=== PATIENT | female | born 1995 ===

== ENCOUNTER 2018-03-17 19:13 | Emergency (ER) | payer MEDICAID, OTHER ==
[2018-03-17 19:28] VITALS: TEMP 98.2; O2SAT 99
--- NOTE | 2018-03-17 19:57 | ED PDOC ---
HPI: Abdomen Time Seen by Provider: 03/17/18 19:36 Chief Complaint (Nursing): Abdominal Pain Chief Complaint (Provider): Abdominal Pain History Per: Patient History/Exam Limitations: no limitations Onset/Duration Of Symptoms: Days (x3) Current Symptoms Are (Timing): Still Present Location Of Pain/Discomfort: LUQ, LLQ Additional Complaint(s): 22 y/o female with a PMHx of a benign pituitary tumor presents to the ED for evaluation of left sided abdominal pain, onset three hours ago. Patient states she was at work when she developed acute left sided abdominal pain. Patient describes pain as sharp, stating pain is a 9/10. Patient reports she is due for her menstrual period on 03/25/2018. Otherwise, patient denies nausea, vomiting and diarrhea. PMD: Marlene Herzog Past Medical History Reviewed: Historical Data, Nursing Documentation, Vital Signs Vital Signs: Last Vital Signs Temp 98.2 F 03/17/18 19:25 Pulse 78 03/17/18 19:25 Resp 18 03/17/18 19:25 BP 138/98 H 03/17/18 19:25 Pulse Ox 99 03/17/18 19:25 - Medical History Other PMH: benign pituitary tumor - Surgical History Surgical History: No Surg Hx - Family History Family History: States: No Known Family Hx - Social History Current smoker - smoking cessation education provided: No Alcohol: None Drugs: Denies - Home Medications Home Medications: Ambulatory Orders Medication Instructions Recorded Nitrofurantoin Macrocrystals 100 mg PO BID #14 cap 03/17/18 [Macrobid] - Allergies Allergies/Adverse Reactions: Allergies Allergy/AdvReac Type Severity Reaction Status Date / Time No Known Allergies Allergy Verified 03/17/18 19:23 Review of Systems ROS Statement: Except As Marked, All Systems Reviewed And Found Negative Gastrointestinal: Positive for: Abdominal Pain. Negative for: Nausea, Vomiting, Diarrhea Physical Exam - Reviewed Nursing Documentation Reviewed: Yes Vital Signs Reviewed: Yes - Physical Exam Appears: Positive for: No Acute Distress Head Exam: Positive for: ATRAUMATIC, NORMOCEPHALIC Skin: Positive for: Normal Color, Warm, Dry Eye Exam: Positive for: Normal appearance, EOMI, PERRL Neck: Positive for: Normal, Painless ROM, Supple Cardiovascular/Chest: Positive for: Regular Rate, Rhythm. Negative for: Murmur Respiratory: Positive for: Normal Breath Sounds. Negative for: Respiratory Distress Gastrointestinal/Abdominal: Positive for: Tenderness (Mild tenderness to palpation of the LLQ) Back: Positive for: Normal Inspection. Negative for: L CVA Tenderness, R CVA Tenderness, Vertebral Tenderness Extremity: Positive for: Normal ROM. Negative for: Deformity Neurologic/Psych: Positive for: Alert, Oriented. Negative for: Motor/Sensory Deficits - Laboratory Results Result Diagrams: 03/17/18 20:07 03/17/18 20:07 - ECG O2 Sat by Pulse Oximetry: 99 (RA) Pulse Ox Interpretation: Normal Medical Decision Making Medical Decision Making: Time: 1944 Impression: 22 y/o female with left sided abdominal pain. Plan: -- CMP -- ED Urine -- ED Urine Dipstick -- CBC with differentials -- Toradol 30 mg IV -- Heplock Insertion -- Urinalysis -- Transvaginal US Time: 2110 US RESULTS FINDINGS: ENDOMETRIUM: Normal thickness measuring 6.4 mm in AP dimension. UTERUS/CERVIX: The uterus is retroverted in position and appears normal in size measuring approximately 6.2 x 3.9 x 4.6 cm in longitudinal, AP and transverse dimensions respectively. No uterine fibroid or other mass evident. RIGHT OVARY: Normal Doppler flow. No abnormal mass. A few tiny follicles are present. The estimated right ovarian volume is 7.3 cm. LEFT OVARY: Normal Doppler flow. No abnormal mass. A few tiny follicles are identified. The estimated left ovarian volume is 9.6 cm. FREE FLUID: No free fluid. IMPRESSION: 1. A few tiny bilateral ovarian follicles are present. 2. Otherwise, unremarkable TV pelvic ultrasound evaluation. Electronically signed on Mar 17, 2018 9:11:03 PM EST by: Bulmaro Cummins M.D., HEIDY Certified By [facility] [employer] Trained MRI and CT Specialist Time: 2243 -- Labs reviewed and demonstrate no clinically significant abnormalities. Patient is stable for discharge home with a diagnosis of a UTI. Scribe Attestation: Documented by Steve Robles, acting as a scribe for Joasfat Hernandez MD. Provider Scribe Attestation: All medical record entries made by the Scribe were at my direction and personally dictated by me. I have reviewed the chart and agree that the record accurately reflects my personal performance of the history, physical exam, medical decision making, and the department course for this patient. I have also personally directed, reviewed, and agree with the discharge instructions and disposition. Disposition - Clinical Impression Clinical Impression: UTI (urinary tract infection) - Patient ED Disposition Is Patient to be Admitted: No Counseled Patient/Family Regarding: Studies Performed, Diagnosis, Rx Given - Disposition Disposition: Routine/Home Disposition Time: 22:44 Condition: STABLE Prescriptions: Nitrofurantoin Macrocrystals [Macrobid] 100 mg PO BID #14 cap Forms: [employer] (Spanish)
[2018-03-17 20:14] LABS: BASO % 0.3 % (0.0-2.0); EOS % 0.3 % (0.0-4.0); LYMPH # 2.6 K/uL (1.0-4.3); LYMPH % 29.1 % (20.0-40.0); MEAN CELL VOLUME 85.2 fl (81.0-99.0); MEAN CORPUSCULAR HEMOGLOBIN 27.9 pg (27.0-31.0); MEAN CORPUSCULAR HGB CONC 32.7 g/dL (33.0-37.0); MEAN PLATELET VOLUME 8.4 fl (7.2-11.7); MONO # 0.5 K/uL (0.0-0.8); MONO % 5.6 % (0.0-10.0); NEUT # 5.8 K/uL (1.8-7.0); NEUT % 64.7 % (50.0-75.0); NRBC % 0.1 % (0.0-0.0); RBC 5.01 Mil/uL (3.80-5.20); RED CELL DISTRIBUTION WIDTH 12.9 % (11.5-14.5)
[2018-03-17 20:21] LABS: ALB/GLOB RATIO 1.1 (1.0-2.1); ALBUMIN 4.2 g/dL (3.5-5.0); ALT/SGPT 14 U/L (9-52); AST/SGOT 17 U/L (14-36); BLOOD UREA NITROGEN 9 mg/dl (7-17); CALCIUM 9.4 mg/dL (8.4-10.2); GFR NON-AFRICAN AMERICAN > 60
[2018-03-17 20:30] LABS: SQUAMOUS EPITHIAL 13 /hpf (0-5); URINE BACTERIA RARE (<OCC); URINE BILIRUBIN NEGATIVE (NEGATIVE); URINE BLOOD NEGATIVE (NEGATIVE); URINE CLARITY SLIGHTY-CLOUDY (Clear); URINE COLOR YELLOW (YELLOW); URINE GLUCOSE (UA) NEG (NEGATIVE); URINE LEUKOCYTE ESTERASE TRACE Leu/uL (Negative); URINE PROTEIN NEGATIVE (NEGATIVE); URINE UROBILINOGEN 0.2-1.0 mg/dL (0.2-1.0)
[2018-03-17 23:05] VITALS: BP 113/64; PULSE 77; RESP 16
--- NOTE | 2018-03-18 11:44 | US ---
Date of service: 03/17/2018 HISTORY: pelvic pain COMPARISON: None available. TECHNIQUE: Transvaginal pelvic ultrasound was performed. FINDINGS: UTERUS: Measures 6.2 x 4.6 x 3.8 cm. Retroverted, in size and appearance. No fibroid or other mass lesion seen. ENDOMETRIUM: Measures 6.4 mm in diameter. Normal in appearance. CERVIX: No cervical abnormality identified. RIGHT OVARY: Measures 3.33 x 2.29 x 1.83 cm. No solid mass. Normal flow. LEFT OVARY: Measures 2.95 x 2.35 x 2.64 cm. No solid mass. Normal flow. There is a 10 mm corpus luteum cyst. FREE FLUID: No significant free fluid noted. OTHER FINDINGS: None. IMPRESSION: Unremarkable pelvic ultrasound. A preliminary report was provided by [employer].
== END 2018-03-17 23:06 | disposition home or self-care (01) ==
LOC: H.ER 19:13
DX: N39.0 Urinary tract infection, site not specified (principal)
CPT/HCPCS: 76830; 80053; 81003; 81025; 85025; 96374; 99283; J1885